=== PATIENT | female | born 1970 ===

== ENCOUNTER 2017-08-07 11:30 | Emergency (ER) | payer OTHER ==
[2017-08-07 11:50] VITALS: BP 126/79
--- NOTE | 2017-08-07 12:30 | UC ---
Abdominal Pain Female HPI - HPI Summary HPI Summary: PT C/O ONSET OF MIDSTERNAL CP AND RUQ ABDOMINAL PAIN THAT STARTED AROUND MIDNIGHT LAST NIGHT. HAS HAD SOME NASUEA OVER THE PAST FEW DAYS - WORSE WITH FOOD. SOME LOOSE STOOLS. DENIES FEVER. PT IS EXTREMELY ANXIOUS AND TREMULOUS. IS CURRENTLY TAKING A "MAINTENANCE DOSE" OF CLARITHROMYCIN FROM A DOCTOR IN [place]. SHE REPORTS THAT SHE HAS A RELATIONSHIP WITH A PHYSICIAN IN [place] AND THAT HER DAD WILL BRING HER THE MEDS FROM THERE WHEN SHE NEEDS THEM. - History of Current Complaint Chief Complaint: UCChestPain Stated Complaint: PAIN UNDER RIB AREA Time Seen by Provider: 08/07/17 11:56 Hx Obtained From: Patient Onset/Duration: Sudden Onset, Lasting Hours, Still Present Timing: Constant Severity Initially: Moderate Severity Currently: Moderate Pain Intensity: 7 Pain Scale Used: 0-10 Numeric Location: Discrete At: RUQ Radiates: Yes Radiates to: Chest Character: Sharp Aggravating Factor(s): Nothing Alleviating Factor(s): Nothing Associated Signs and Symptoms: Positive: Chest Pain, Nausea, Diarrhea Allergies/Adverse Reactions: Allergies Allergy/AdvReac Type Severity Reaction Status Date / Time Acyclovir and Related Allergy Flushing Verified 08/07/17 11:56 Codeine Allergy Anaphylatic Verified 08/07/17 11:56 Shock Dexamethasone [From Decadron] Allergy Wheezing Verified 08/07/17 11:56 Lidocaine Allergy Anaphylatic Verified 08/07/17 11:56 Shock Penicillins [PCN] Allergy Hives/Diff. Verified 08/07/17 11:56 Breathing/I tching Procaine [From Novocain] Allergy Anaphylatic Verified 08/07/17 11:56 Shock Sodium Benzoate Allergy Difficulty Verified 08/07/17 11:56 Breathing novocain Allergy Anaphylatic Uncoded 08/07/17 11:56 Shock Home Medications: Home Medications Clarithromycin TAB* [Biaxin 500 MG TAB*] 250 mg PO DAILY 08/07/17 [History Confirmed 08/07/17] PMH/Surg Hx/FS Hx/Imm Hx Other Cancer History: HODGKINS LYMPHOMA AGE 17 - Surgical History Surgical History: None - Family History Known Family History: Positive: Hypertension - Social History Alcohol Use: None Substance Use Type: None Smoking Status (MU): Never Smoked Tobacco Review of Systems Constitutional: Other - ANXCIOUS Respiratory: Shortness Of Breath Cardiovascular: Chest Pain Gastrointestinal: Diarrhea, Nausea Psychological: Anxious All Other Systems Reviewed And Are Negative: Yes Physical Exam Triage Information Reviewed: Yes Appearance: No Pain Distress, Well-Nourished, Other: - APPEARS EXTREMELY ANXIOUS AND TREMULOUS Vital Signs: Initial Vital Signs Pulse 105 08/07/17 11:46 Resp 22 08/07/17 11:46 BP 126/79 08/07/17 11:46 Pulse Ox 98 08/07/17 11:46 Eyes: Positive: Conjunctiva Clear ENT: Positive: Hearing grossly normal Neck: Positive: Supple Respiratory Exam: Normal Cardiovascular Exam: Normal Cardiovascular: Positive: Tachycardia Abdomen Description: Positive: Soft, Guarding - TTP. NO REBOUND. EQUIVOCAL MURPHYS. Negative: CVA Tenderness (R), CVA Tenderness (L), Distended Bowel Sounds: Positive: Present Musculoskeletal: Positive: No Edema Neurological: Positive: Alert Psychological: Positive: Age Appropriate Behavior, Other: - ANXIOUS Skin: Negative: rashes Diagnostics - EKG Cardiac Rate: Tachycardia Cardiac Rhythm: Sinus: Normal - 105 BPM Ectopy: None ST Segment: Non-Specific Abd Pain Female Course/Dx - Course Course Of Treatment: TO [facility] BY PRIVATE CAR. CONCERN FOR GB DISEASE. LOW SUSPICION FOR CARDIAC ETIOLOGY BUT GIVEN INITIAL SX OF CP AND CONTINUING ABDOMINAL DISCOMFORT WITH CLEAR ANXIETY WILL ADVISE GOING TO ER FOR FURTHER WORK -UP. - Differential Dx/Diagnosis Provider Diagnoses: RUQ PAIN/CHEST PAIN Discharge - Discharge Plan Condition: Stable Disposition: OTHER Discharge Disposition Comment: TO [facility] BY PRIVATE CAR Patient Education Materials: Abdominal Pain (ED) Referrals: No Primary Care Phys,NOPCP [Primary Care Provider] - Additional Instructions: GO DIRECTLY TO THE ER FROM HERE FOR FURTHER EVALUATION.
== END 2017-08-07 12:30 ==
LOC: UCEAST 11:30
DX: R07.89 Other chest pain (principal); R10.11 Right upper quadrant pain; Z88.5 Allergy status to narcotic agent; Z88.0 Allergy status to penicillin; Z88.8 Allergy status to other drugs, medicaments and biological substances; Z88.4 Allergy status to anesthetic agent
CPT/HCPCS: 93005; 99212; G0463

== ENCOUNTER 2019-05-30 18:40 | Emergency (ER) | payer OTHER ==
[2019-05-30 19:02] VITALS: BP 128/69
--- NOTE | 2019-05-30 19:18 | UC ---
Cardiac HPI - HPI Summary HPI Summary: Ms. Raymond has felt 'off' all day today. She hasn't been able to eat and she was moved her bowels several times with loose stools. About 2 hours ago she began to feel some chest pressure accompanied by mild shortness of breath and dizziness. She was not diaphoretic. She has not vomited. She is not noticed any exacerbating or relieving factors. - History of Current Complaint Stated Complaint: CHEST PRESSURE, GI ISSUE Time Seen by Provider: 05/30/19 18:52 Hx Obtained From: Patient Onset/Duration: Gradual Onset Initial Severity: Mild Current Severity: Mild Pain Intensity: 2 Chest Pain Location: Diffuse Aggravating Factor(s): Nothing Alleviating Factor(s): Nothing Associated Signs & Symptoms: Positive: Dizziness, SOB - Allergy/Home Medications Allergies/Adverse Reactions: Allergies Allergy/AdvReac Type Severity Reaction Status Date / Time acyclovir Allergy Flushing Verified 05/30/19 19:13 codeine Allergy Anaphylatic Verified 05/30/19 19:13 Shock dexamethasone Allergy Wheezing Verified 05/30/19 19:13 lidocaine Allergy Anaphylatic Verified 05/30/19 19:13 Shock Penicillins Allergy Hives/Diff. Verified 05/30/19 19:13 Breathing/I tching procaine Allergy Anaphylatic Verified 05/30/19 19:13 Shock sodium benzoate Allergy Difficulty Verified 05/30/19 19:13 Breathing novocain Allergy Anaphylatic Uncoded 05/30/19 19:13 Shock Home Medications: Home Medications NK [No Home Medications Reported] 05/30/19 [History Confirmed 05/30/19] PMH/Surg Hx/FS Hx/Imm Hx Previously Healthy: Yes - Surgical History Surgical History: None - Family History Known Family History: Positive: Hypertension - Social History Alcohol Use: None Substance Use Type: None Smoking Status (MU): Never Smoked Tobacco Review of Systems All Other Systems Reviewed And Are Negative: Yes - was my advice that she is not Respiratory: Positive: Shortness Of Breath Cardiovascular: Positive: Other - Pressure Gastrointestinal: Positive: Negative - Decreased appetite and mild nausea Neurological: Positive: Negative - And dizziness Physical Exam - Summary Physical Exam Summary: She is nontoxic in appearance with stable vitals. Triage Information Reviewed: Yes Appearance: Well-Appearing, No Pain Distress Vital Signs: Initial Vital Signs Temp 98.8 F 05/30/19 18:49 Pulse 84 05/30/19 18:49 Resp 16 05/30/19 18:49 BP 128/69 05/30/19 18:49 Pulse Ox 100 05/30/19 18:49 Vital Signs Reviewed: Yes Eye Exam: Normal ENT Exam: Normal Neck exam: Normal Respiratory Exam: Normal Cardiovascular: Positive: RRR, Murmur:Sys:Grade _?_/ - 1-08/28 Abdomen Description: Positive: Nontender Diagnostics - EKG Cardiac Rate: NL Cardiac Rhythm: Sinus: Normal Ectopy: None ST Segment: Non-Specific EKG Comparison: No Significant Change - 08/17/17 - Assessment/Plan Course Of Treatment: In July 2017 she was here with a similar situation. At that time and was advised that she go to the emergency department but she did not. Her EKG is unchanged from that time. I hear systolic ejection murmur she states that she is aware that she has one. I recommended that she go to the emergency department for further evaluation based on this symptom complex. She said she would think about it and I do not think that she will go. I think the chances of this being cardiac are low but I have no ability to diagnose any farther. - Clinical Impression Provider Diagnosis: Chest pain Discharge ED - Sign-Out/Discharge Documenting (check all that apply): Patient Departure All imaging exams completed and their final reports reviewed: No Studies - Discharge Plan Condition: Stable Disposition: HOME-RECOMMEND TO ED Referrals: Nicole Peñaloza MD [Primary Care Provider] - - Billing Disposition and Condition Condition: STABLE Disposition: Home-Recommend to ED
== END 2019-05-30 19:25 | disposition home health service (06) ==
LOC: UCEAST 18:40
DX: R07.9 Chest pain, unspecified (principal); R06.02 Shortness of breath; R42 Dizziness and giddiness; R01.1 Cardiac murmur, unspecified; Z88.1 Allergy status to other antibiotic agents; Z88.5 Allergy status to narcotic agent; Z88.8 Allergy status to other drugs, medicaments and biological substances; Z88.4 Allergy status to anesthetic agent; Z88.0 Allergy status to penicillin
CPT/HCPCS: 99212; G0463